=== PATIENT | female | born 1945 | race Caucasian/White ===

== ENCOUNTER 2017-06-25 10:32 | Outpatient (CLI) | payer MEDICARE, MEDICAID | END 2017-06-27 10:33 | disposition home or self-care (01) | LOC: BICRAD 10:32 | PROVIDERS: ATTEND Internal Medicine | DX: M79.671 Pain in right foot (principal); M77.31 Calcaneal spur, right foot ==

== ENCOUNTER 2018-07-07 09:51 | Outpatient (CLI) | payer MEDICARE, MEDICAID ==
--- NOTE | 2018-07-07 11:41 | CT ---
CT CERVICAL SPINE WITHOUT CONTRAST: HISTORY: Cervical disk disorder. Radiculopathy. Fell in May. Neck and right shoulder pain since the incident. Possible undisplaced fracture at the base of the odontoid process o previous cervical spine radiograp h. COMPARISON: None. FINDINGS: No craniocervical dissociation. Lateral masses of C1 and C2 articulate appropriately. Odontoid proc ess is intact. Appropriate articulation of facets. Cervical spine vertebral body heights are maintained. No evidence of a cervical spine fracture. 2.8 mm of anterolisthesis of C2 upon C3 and 2.1 mm anterolisthesis of C3 upon C4. Soft tissue neck structures are unremarkable. Central spinal canal and neural foramen demonstrate va rying degrees of stenosis on the basis of degenerative change. Evaluation is limited due to techniqu e. Lung apices and upper mediastinum do not demonstrate an acute abnormality. C2-C3: No high-grade central canal stenosis or high-grade foraminal narrowing. C3-C4: Broad-based disk-osteophyte complex results in mild central canal stenosis. Severe right and left foraminal narrowing. C4-C5: Broad-based disk-osteophyte complex abuts the thecal sac. There is at least mild central can al stenosis. Severe right and moderate left foraminal narrowing. C5-C6: Broad-based disk-osteophyte complex abuts the thecal sac. Mild central canal stenosis. Mode rate to severe right and moderate left foraminal narrowing. C6-C7: Broad-based disk-osteophyte complex without high-grade central canal stenosis. Moderate bila teral foraminal narrowing. C7-T1: No high-grade central canal stenosis. Mild bilateral foraminal narrowing. There appears to be hemangioma along the superior aspect of T3. IMPRESSION: 1. No fracture. 2. Degenerative changes of the cervical spine as above. POS: [facility]
== END 2018-07-07 09:52 | disposition home or self-care (01) ==
LOC: BICCT 09:51
PROVIDERS: ATTEND Internal Medicine
DX: M50.10 Cervical disc disorder with radiculopathy, unspecified cervical region (principal); M47.22 Other spondylosis with radiculopathy, cervical region
CPT/HCPCS: 72125

== ENCOUNTER 2022-02-04 09:53 | Emergency (ER) | payer MEDICARE, MEDICAID ==
[2022-02-04] MEDS ORDERED: Methocarbamol 500 MG TAB PO SCH (12:45)
== END 2022-02-04 13:08 | disposition home or self-care (01) ==
LOC: ERS 09:53
DX: S16.1XXA Strain of muscle, fascia and tendon at neck level, initial encounter (principal); S40.011A Contusion of right shoulder, initial encounter; K21.9 Gastro-esophageal reflux disease without esophagitis; I25.10 Atherosclerotic heart disease of native coronary artery without angina pectoris; I25.2 Old myocardial infarction; I10 Essential (primary) hypertension; E78.5 Hyperlipidemia, unspecified; F17.210 Nicotine dependence, cigarettes, uncomplicated; W18.30XA Fall on same level, unspecified, initial encounter; Z95.5 Presence of coronary angioplasty implant and graft; Z85.828 Personal history of other malignant neoplasm of skin; Z85.3 Personal history of malignant neoplasm of breast; Z79.82 Long term (current) use of aspirin; Z79.899 Other long term (current) drug therapy

== ENCOUNTER 2022-03-31 15:04 | Inpatient (IN) | payer MEDICARE, MEDICAID ==
[2022-03-31 15:32] LABS: #Eosinphils 0.1 thou/uL (0.0-0.7); #Lymphocytes 2.5 thou/uL (1.20-3.40); #Monocytes 0.5 thou/uL (0.11-0.59); %Basophils 0.5 % (0.0-1.0); %Eosinophils 1.9 % (0.0-10.0); %Lymphocytes 41.1 % (21.0-51.0); %Monocytes 7.6 % (0.0-10.0); %Neutrophils 48.8 % (42.0-75.0); Hemoglobin 13.8 g/dL (12.0-16.0); Mean Corpuscular HGB CONC 32.4 g/dL (32.0-36.0); Mean Corpuscular Hemoglobin 31.8 pg (27.0-31.0); Mean Platelet Volume 7.4 fL (7.4-10.4); Platelet Count 286 10x3/uL (130-400); RBC Distribution Width 12.6 % (11.5-14.5); Red Blood Cell (RBC) Count 4.34 mill/uL (4.20-5.40); White Blood Cell (WBC) Count 6.1 10x3/uL (4.8-10.8)
[2022-03-31 15:42] LABS: INR-International Normal Ratio 0.9; PTT 27.8 sec (22.9-36.1)
[2022-03-31 15:54] LABS: ALT (SGPT) 15 U/L (8-55); AST (SGOT) 19 U/L (5-34); Albumin 4.2 g/dL (3.4-4.8); Alkaline Phosphatase 86 U/L (40-110); Anion Gap 12 mmol/L (10-20); BUN (Urea Nitrogen) 14 mg/dL (9.8-20.1); Bilirubin, Total 0.4 mg/dL (0.2-1.2); Calc. Creatinine Clearance 0 mL/min (70-130); Calcium 9.5 mg/dL (7.8-10.44); Carbon Dioxide 28 mmol/L (23-31); Chloride 106 mmol/L (98-107); Estimated GFR 82; Globulin 2.6 g/dL (2.4-3.5); Glucose 106 mg/dL (83-110); Potassium 3.5 mmol/L (3.5-5.1); Protein, Total 6.8 g/dL (5.8-8.1); Sodium 142 mmol/L (136-145)
[2022-03-31] MEDS ORDERED: Metoclopramide HCl 10 MG/2 ML VIAL ONE (16:28)
[2022-03-31] MEDS ORDERED: diphenhydrAMINE 50 MG/ML VIAL ONE (16:28)
[2022-03-31 17:09] LABS: Bilirubin Negative (Negative); Blood, Urine Trace (Negative); Clarity Clear (Clear); Glucose, Urine (Dipstick) Normal (Negative); Ketone, Urine Negative (Negative); Leukocyte Negative Leu/uL (Negative); Nitrite Negative (Negative); Protein, Urine (Dipstick) Negative (Neg-Trace); Specific Gravity, Urine 1.013 (1.002-1.036); Squamous Epithelial 0-3 HPF (0-3); Urobilinogen Normal mg/dL (Less than 2); WBC/HPF 0-3 HPF (0-3)
[2022-03-31 17:10] LABS: Bacteria/HPF 1+ HPF (None Seen)
[2022-03-31] MEDS ORDERED: hydrALAZINE 20 MG/ML VIAL SLOW IVP PRN (17:33)
[2022-03-31] MEDS ORDERED: Senokot S 8.6-50 MG TAB PO PRN (17:36)
[2022-03-31] MEDS ORDERED: Ondansetron PF 4 MG/2 ML Vial IVP PRN (17:36)
[2022-03-31] MEDS ORDERED: Ondansetron ODT 4 MG TAB PO PRN (17:36)
[2022-03-31 20:03] LABS: SARS-CoV-2 NAA Rapid Test Not Detected (NotDetected)
[2022-03-31] MEDS ORDERED: Aspirin Chewable 81 MG TAB ONE (21:16)
[2022-03-31 22:25] VITALS: BMI 21.0
[2022-03-31] MEDS: Melatonin 3 MG TAB PO PRN (22:54)
[2022-03-31] MEDS: Acetaminophen 325 MG TAB PO PRN (22:54)
[2022-03-31] MEDS: Atorvastatin Calcium 40 MG TAB PO SCH (22:54)
[2022-03-31] MEDS: Sodium Chloride 0.9% 1,000 ML IV SCH (22:55)
[2022-03-31] MEDS: Heparin 5,000 UNITS/ML VIAL SC SCH (22:55)
[2022-04-01 06:05] LABS: ALT (SGPT) 13 U/L (8-55); AST (SGOT) 16 U/L (5-34); Albumin 3.2 g/dL (3.4-4.8); Alkaline Phosphatase 68 U/L (40-110); Anion Gap 9 mmol/L (10-20); BUN (Urea Nitrogen) 12 mg/dL (9.8-20.1); Bilirubin, Total 0.3 mg/dL (0.2-1.2); Calc. Creatinine Clearance 67 mL/min (70-130); Calcium 8.3 mg/dL (7.8-10.44); Carbon Dioxide 25 mmol/L (23-31); Cardiac Risk 2.5 (Less than 4.5); Chloride 112 mmol/L (98-107); Cholesterol 112 mg/dl (< 200 Desired); Estimated GFR 92; Globulin 1.8 g/dL (2.4-3.5); Glucose 103 mg/dL (83-110); HDL Cholesterol 44 mg/dL (>60 Neg Risk); LDL Cholesterol, Calculated 51 mg/dL; Potassium 3.2 mmol/L (3.5-5.1); Sodium 143 mmol/L (136-145); Triglycerides 87 mg/dL (Less than 150)
[2022-04-01 06:19] LABS: Hemoglobin A1c 5.5 % (4.0-6.0)
[2022-04-01] MEDS ORDERED: Meclizine HCl 25 MG TAB PO PRN (08:43)
[2022-04-01] MEDS ORDERED: Potassium Chloride 20 MEQ TAB PO SCH (08:45)
[2022-04-01] MEDS: Ezetimibe 10 MG TAB PO SCH (08:47)
[2022-04-01] MEDS: Acetaminophen 325 MG TAB PO PRN ×2 (08:47→20:04)
[2022-04-01] MEDS: Heparin 5,000 UNITS/ML VIAL SC SCH ×2 (08:48→20:04)
[2022-04-01] MEDS: Aspirin 81 mg Enteric Coated Tablet PO SCH (08:48)
[2022-04-01] MEDS: Sodium Chloride 0.9% 1,000 ML IV SCH (08:53)
[2022-04-01] MEDS ORDERED: Aspirin/APAP/Caffeine Tab (Excedrin Migraine) PO SCH (10:30)
[2022-04-01 10:38] LABS: Band 6 % (5-11); Eosinophils 1 % (0-10); Hemoglobin 11.8 g/dL (12.0-16.0); Lymphocytes 44 % (21-51); MDiff Complete? YES; Mean Corpuscular HGB CONC 33.7 g/dL (32.0-36.0); Mean Corpuscular Hemoglobin 33.4 pg (27.0-31.0); Mean Corpuscular Volume 99.1 fl (78.0-98.0); Mean Platelet Volume 7.5 fL (7.4-10.4); Metamyelocyte 1 % (0-0); Monocytes 6 % (0-10); Neutrophil 42 % (42-75); Platelet Count 229 10x3/uL (130-400); Platelet Morphology Comment Appears Adequate; RBC Distribution Width 12.4 % (11.5-14.5); RBC Morphology Normal; Red Blood Cell (RBC) Count 3.52 mill/uL (4.20-5.40); White Blood Cell (WBC) Count 4.9 10x3/uL (4.8-10.8)
[2022-04-01] MEDS ORDERED: Morphine 4 MG/ML VIAL SLOW IVP SCH (12:45)
[2022-04-01] MEDS ORDERED: Prochlorperazine Edisylate 10 MG in Sodium Chloride 0.9% 50 ML IVPB SCH (12:45)
[2022-04-01] MEDS ORDERED: diphenhydrAMINE 50 MG/ML VIAL IVP SCH (12:45)
[2022-04-01] MEDS: Melatonin 3 MG TAB PO PRN (20:04)
[2022-04-01] MEDS: Atorvastatin Calcium 40 MG TAB PO SCH (20:04)
[2022-04-02] MEDS: Ezetimibe 10 MG TAB PO SCH (08:41)
[2022-04-02] MEDS: Aspirin 81 mg Enteric Coated Tablet PO SCH (08:41)
[2022-04-02] MEDS: Heparin 5,000 UNITS/ML VIAL SC SCH (08:41)
[2022-04-02] MEDS: Acetaminophen 325 MG TAB PO PRN (12:06)
[2022-04-02 16:23] VITALS: BP 187/86; TEMP 97.3
[2022-04-03] MEDS ORDERED: FLU VACC QS2022-23(65YR UP)/PF 240 MCG/0.7 ML SYRINGE IM ONE (09:00)
== END 2022-04-02 18:00 | disposition home or self-care (01) | DRG 103 ==
LOC: ERS 15:04 → SUATTDRO 15:04 → ERHOLD 17:38 → NEURO 21:38 → OBSVTOIN 04-02 14:53
PROVIDERS: ADMIT Internal Medicine; ATTEND Family Medicine
DX: G43.909 Migraine, unspecified, not intractable, without status migrainosus (principal); Z20.822 Contact with and (suspected) exposure to COVID-19; E78.5 Hyperlipidemia, unspecified; R29.810 Facial weakness; H53.2 Diplopia; I10 Essential (primary) hypertension; J30.9 Allergic rhinitis, unspecified
CPT/HCPCS: 36415; 70450; 70551; 71045; 80053; 80061; 81003; 81015; 83036; 84484; 85025; 85610; 85730; 93005; 93306; 93880; 96372; 96374; 96375; 96376; G0378; J0780; J1200; J1644; J2270; J2765; J7050; U0002

== ENCOUNTER 2022-09-10 09:08 | Emergency (ER) | payer MEDICARE, MEDICAID ==
[2022-09-10 10:46] LABS: #Basophils 0.1 thou/uL (0.0-0.2); #Eosinphils 0.1 thou/uL (0.0-0.7); #Lymphocytes 1.6 thou/uL (1.20-3.40); #Monocytes 0.6 thou/uL (0.11-0.59); #Neutrophils 4.4 thou/uL (1.40-6.50); %Basophils 1.3 % (0.0-1.0); %Eosinophils 1.3 % (0.0-10.0); %Lymphocytes 24.2 % (21.0-51.0); %Monocytes 8.7 % (0.0-10.0); %Neutrophils 64.6 % (42.0-75.0); Mean Corpuscular HGB CONC 34.1 g/dL (32.0-36.0); Mean Corpuscular Hemoglobin 32.9 pg (27.0-31.0); Mean Corpuscular Volume 96.5 fl (78.0-98.0); Mean Platelet Volume 7.4 fL (7.4-10.4); Platelet Count 251 10x3/uL (130-400); Red Blood Cell (RBC) Count 4.27 mill/uL (4.20-5.40); White Blood Cell (WBC) Count 6.8 10x3/uL (4.8-10.8)
[2022-09-10 11:04] LABS: ALT (SGPT) 10 U/L (8-55); AST (SGOT) 16 U/L (5-34); Alkaline Phosphatase 88 U/L (40-110); Anion Gap 14 mmol/L (10-20); BUN (Urea Nitrogen) 14 mg/dL (9.8-20.1); Bilirubin, Total 0.4 mg/dL (0.2-1.2); Calc. Creatinine Clearance 0 mL/min (70-130); Calcium 8.9 mg/dL (7.8-10.44); Carbon Dioxide 24 mmol/L (23-31); Chloride 105 mmol/L (98-107); Estimated GFR 72; Globulin 2.6 g/dL (2.4-3.5); Glucose 101 mg/dL (83-110); Potassium 3.9 mmol/L (3.5-5.1); Protein, Total 6.6 g/dL (5.8-8.1); Sodium 139 mmol/L (136-145)
== END 2022-09-10 11:30 | disposition short-term general hospital (02) ==
LOC: ERS 09:08
DX: R53.1 Weakness (principal); K21.9 Gastro-esophageal reflux disease without esophagitis; I25.10 Atherosclerotic heart disease of native coronary artery without angina pectoris; E78.5 Hyperlipidemia, unspecified; I10 Essential (primary) hypertension; F17.210 Nicotine dependence, cigarettes, uncomplicated; W19.XXXA Unspecified fall, initial encounter; Z79.82 Long term (current) use of aspirin; Z79.899 Other long term (current) drug therapy
CPT/HCPCS: 36415; 80053; 85025; 93005

== ENCOUNTER 2022-11-24 09:50 | Day surgery (SDC) | payer MEDICARE ==
[2022-11-23 10:51] VITALS: BMI 21.4
[~2022-11-24 09:50] MED LIST: EPINEPHrine 0.3 MG in Ophthalmic Irrigation Solution 500 ML IRR SCH
[2022-11-24] MEDS ORDERED: PHENYLephrine 2.5% Ophth Soln 15 ml Bottle ONE (10:22)
[2022-11-24] MEDS ORDERED: Cyclopentolate 1% Opth Drop 2 ML BOT ONE (10:22)
[2022-11-24] MEDS ORDERED: Midazolam HCl 2 mg/2 ml Vial ONE (10:50)
[2022-11-24] MEDS ORDERED: Indocyanine Green 25 MG/10 ML VIAL ONE (10:57)
[2022-11-24] MEDS ORDERED: PROPOFOL 200 MG/20 ML VIAL ONE (10:57)
[2022-11-24] MEDS ORDERED: CEFAZOLIN 1 GM VIAL ONE (10:57)
[2022-11-24] MEDS ORDERED: Lidocaine 1% PF 5 ML VIAL ONE (10:57)
[2022-11-24] MEDS ORDERED: Lidocaine 4% PF 5 ML AMP ONE (10:57)
[2022-11-24] MEDS ORDERED: Triamcinolone 40 MG/ML VIAL ONE (10:57)
[2022-11-24] MEDS ORDERED: Glycopyrrolate 0.2 MG/ML 5 ML SYRINGE ONE (10:57)
[2022-11-24] MEDS ORDERED: Bupivacaine 0.75% 10 ML VIAL ONE (10:57)
[2022-11-24] MEDS ORDERED: Maxitrol 0.1% Opth Oint 3.5 GM TUBE ONE (10:57)
== END 2022-11-24 12:23 | disposition home or self-care (01) ==
LOC: SDC 09:50
PROVIDERS: ATTEND Ophthalmology Retina Specialist
PROC: 08T53ZZ Resection of Left Vitreous, Percutaneous Approach (ICD-10-PCS; principal; 2022-11-24)
DX: H35.342 Macular cyst, hole, or pseudohole, left eye (principal)
CPT/HCPCS: 67025; J0171; J0690; J2250; J2704; J3301; J3490

== ENCOUNTER 2024-07-11 15:22 | Emergency (ER) | payer MEDICARE, OTHER ==
[2024-07-11 16:20] LABS: Bacteria/HPF 3+ HPF (None Seen); Bilirubin Negative (Negative); Blood, Urine 1+ (Negative); CAUTI Indications for Culture Dysuria,urgency,freq; Clarity Turbid (Clear); Glucose, Urine (Dipstick) Normal (Negative); Ketone, Urine Negative (Negative); Leukocyte 500 Leu/uL (Negative); Nitrite Negative (Negative); Protein, Urine (Dipstick) 50 mg/dL (Neg-Trace); Specific Gravity, Urine 1.018 (1.002-1.036); Squamous Epithelial 0-3 HPF (0-3); Urobilinogen Normal mg/dL (Less than 2); WBC/HPF Greater than 50 HPF (0-3); pH, Urine 5.5 (5.0-9.0)
[2024-07-11 16:21] LABS: Urine Culture Reflex Yes Yes
[2024-07-11] MEDS ORDERED: cefTRIAXone (ROCEPHIN) 1 GM VIAL ONE (16:40)
[2024-07-11] MEDS ORDERED: Sodium Chloride 0.9% 100 ML ONE (16:40)
[2024-07-11 17:09] LABS: #Basophils 0.06 10x3/uL (0.0-0.2); %Basophils 0.9 % (0.0-1.0); %Eosinophils 1.8 % (0.0-10.0); %Lymphocytes 40.7 % (21.0-51.0); %Monocytes 11.5 % (0.0-10.0); %Neutrophils 44.7 % (42.0-75.0); Hematocrit 41.8 % (36.0-47.0); Hemoglobin 14.2 g/dL (12.0-16.0); Mean Corpuscular Hemoglobin 31.7 pg (27.0-31.0); Mean Corpuscular Volume 93.3 fL (78.0-98.0); Mean Platelet Volume 9.3 fL (7.4-10.4); Platelet Count 302 10x3/uL (130-400); RBC Distribution Width 12.5 % (11.5-14.5); Red Blood Cell (RBC) Count 4.48 mill/uL (4.20-5.40)
[2024-07-11 17:36] LABS: ALT (SGPT) 10 U/L (Less than 34); AST (SGOT) 20 U/L (11-34); Albumin 3.8 g/dL (3.1-4.5); Alkaline Phosphatase 49 U/L (40-110); Anion Gap 14 mmol/L (10-20); BUN (Urea Nitrogen) 19 mg/dL (9.8-20.1); Bilirubin, Total 0.4 mg/dL (0.3-1.2); Calc. Creatinine Clearance 0 mL/min (70-130); Calcium 9.7 mg/dL (7.8-10.44); Carbon Dioxide 29 mmol/L (23-31); Chloride 102 mmol/L (98-107); Estimated GFR 75; Globulin 3.2 g/dL (2.4-3.5); Glucose 96 mg/dL (83-110); Lipase 41 U/L (8-78); Potassium 3.5 mmol/L (3.5-5.1); Sodium 141 mmol/L (136-145)
[2024-07-11] MEDS ORDERED: Phenazopyridine HCl 100 MG TAB ONE (17:57)
== END 2024-07-11 18:25 | disposition home or self-care (01) ==
LOC: ERS 15:22
DX: N39.0 Urinary tract infection, site not specified (principal); F17.210 Nicotine dependence, cigarettes, uncomplicated; I10 Essential (primary) hypertension; I25.10 Atherosclerotic heart disease of native coronary artery without angina pectoris; I25.2 Old myocardial infarction; Z95.1 Presence of aortocoronary bypass graft
CPT/HCPCS: 80053; 81001; 83690; 85025; 87077; 87086; J0696; 51798; 96365